=== PATIENT | female | born 1930 | race Caucasian/White ===

== ENCOUNTER 2016-09-11 14:34 | Inpatient (IN) | payer OTHER, MEDICARE ==
[~2016-09-11] VITALS: Ht 170.2 cm; Wt 75.5 kg
[~2016-09-11 14:34] MED LIST: ASPIRIN E.C.81 M1 PO; ASPIRIN81 M1 PO; AVAPRO300 MG PO; Ascorbic Acid,Ester- PO; CADUET 10/801 TABLET PO; CELEBREX200 MG PO; CLARITIN10 MG PO; Claritin,Alavart PO; Dulcolax PO; ENDOCET 5-3251 EACH PO; FOLVITE1 M1 PO; FOSAMAX70 MG PO; GEMFIBROZIL600 MG PO; HYDROCHLOROTH12.5 M3 PO; LIPITOR40 MG PO; LOPID600 MG PO; LOPRESSOR100 M1 PO; LOPRESSOR50 MG PO; Lopid PO; Lopressor PO; METOCLOPRAMIDE H5 MG PO; NEXIUM10 MG PO; NEXIUM40 MG PO; NORVASC10 MG PO; Norvasc PO; ONDANSETRON ODT4 MG PO; OYST-CAL D, OS500 M1 PO; Ocean Nasal 0.65% BOTH NARES; PLAVIX75 MG PO; SENOKOT S,PE1 TABLET PO; SUCRALFATE1 GM/10 ML PO; THERAGRAN1 TABLET PO; TOPROL XL50 MG PO; Tylenol Regular Stre PO; XARELTO15 MG PO; ZETIA10 MG PO; ZOFRAN ODT8 MG PO; ZOLOFT50 MG PO; ZYRTEC10 M2 PO; Zoloft PO
[2016-09-11 15:32] LABS: HEMATOCRIT 25.6 % (36.0-46.0); MCH 26.2 PG (29.0-34.0); MCV 81.8 FL (83-99); MEAN PLAT.VOLUME 10.4 uM^3 (9.5-12.4); PLATELET COUNT 332 K/uL (156-360); RBC DIS.WIDTH-CV 13.4 % (11.8-14.6); RBC DIS.WIDTH-SD 40.1 % (39-53); RED BLOOD COUNT 3.13 M/uL (3.80-5.20); WHITE BLOOD COUNT 10.3 K/uL (4.1-10.2)
[2016-09-11 15:42] LABS: CHLORIDE 103 mEq/L (99-109); POTASSIUM 3.8 mEq/L (3.7-5.4); SODIUM 134 mEq/L (136-147)
[2016-09-11 15:43] LABS: GLUCOSE 146 mg/dL (70-99)
[2016-09-11 15:45] LABS: ANION GAP 8 MEQ/L (2-14)
[2016-09-11 15:47] LABS: GFR ESTIMATE (CALCULATED) 41 mL/min/
[2016-09-11 15:48] LABS: UREA NITROGEN (BUN) 26 mg/dL (9-23)
[2016-09-11] MEDS ORDERED: LIPITOR80 MG PO (18:59)
[2016-09-11] MEDS ORDERED: LOPRESSOR50 MG PO (19:01)
[2016-09-11] MEDS ORDERED: CALCIUM 600 +1 EAC1 PO (19:02)
[2016-09-11] MEDS ORDERED: ANTIVERT25 MG PO (19:03)
[2016-09-11] MEDS ORDERED: RANITIDINE HCL300 MG PO (19:03)
[2016-09-11 23:34] LABS: TROP-I INTERPRETATION NEGATIVE; TROPONIN-I 0.03 ng/mL (0.0-0.30)
[2016-09-12] VITALS (25 sets, daily range): BP systolic 127–171; BP diastolic 62–91
[2016-09-12 00:59] LABS: HEMATOCRIT 23.6 % (36.0-46.0); MCV 81.7 FL (83-99)
[2016-09-12 01:37] LABS: METH RESISTANT S AUREUS PCR NEGATIVE (NEGATIVE)
[2016-09-12 01:45] LABS: PROBE CHECK PASS; SPECIMEN PROCESSING CONTROL PASS
[2016-09-12 05:13] LABS: MCV 81.8 FL (83-99)
[2016-09-12 05:28] LABS: INTER. NORMALIZED RATIO 1.1; PROTHROMBIN TIME 10.7 (9.2-11.2); PTT 24.3 (25-32)
[2016-09-12 05:40] LABS: ALKALINE PHOSPHATASE 44 IU/L (3-129); ANION GAP 10 MEQ/L (2-14); CHLORIDE 108 MEQ/L (99-109); GFR ESTIMATE (CALCULATED) 50 mL/min/; SAMPLE HEMOLYSIS CHECK 0; SAMPLE ICTERIC CHECK 0; SAMPLE LIPEMIA CHECK 0; SODIUM 140 MEQ/L (136-147); TOTAL BILIRUBIN 0.5 MG/DL (0.0-1.0); UREA NITROGEN (BUN) 16 mg/dL (9-23)
[2016-09-12 05:42] LABS: GLUCOSE 109 mg/dL (70-99)
[2016-09-12 06:53] LABS: Estimated Average Glucose 131 mg/dL (70-123); HEMOGLOBIN A1c (GLYCOHEMOGLOB) 6.2 % HGB (Below 5.7)
[2016-09-12 07:01] LABS: TROP-I INTERPRETATION NEGATIVE; TROPONIN-I 0.07 ng/mL (0.0-0.30)
[2016-09-12 07:10] LABS: HDL CHOLESTEROL 46 MG/DL (Desirable>=50); IRON 12 MCG/DL (35-150); LDL CHOLESTEROL 36 mg/dL (Desirable<100); NON-HDL CHOLESTEROL 48 mg/dL (Desirable<160); TOTAL CHOLESTEROL 94 mg/dL (Desirable<200); TRIGLYCERIDES 61 MG/DL (Normal: <150)
[2016-09-12 07:44] LABS: FERRITIN 8 NG/ML (10-291)
[2016-09-12 10:12] LABS: TROP-I INTERPRETATION NEGATIVE; TROPONIN-I 0.05 ng/mL (0.0-0.30)
[2016-09-12 18:55] LABS: HEMATOCRIT 31.3 % (36.0-46.0); MCV 83.5 FL (83-99)
[2016-09-12 19:04] LABS: HEMATOCRIT 33.1 % (36.0-46.0); MCV 82.5 FL (83-99)
[2016-09-13] VITALS (14 sets, daily range): BP systolic 133–162; BP diastolic 62–85
[2016-09-13 06:01] LABS: HEMATOCRIT 31.8 % (36.0-46.0); MCH 27.7 PG (29.0-34.0); MCHC 33.3 G/DL (30.0-36.0); MEAN PLAT.VOLUME 10.7 uM^3 (9.5-12.4); PLATELET COUNT 248 K/uL (156-360); RBC DIS.WIDTH-CV 13.9 % (11.8-14.6); WHITE BLOOD COUNT 13.2 K/uL (4.1-10.2)
[2016-09-13 06:23] LABS: RED BLOOD COUNT 3.83 M/uL (3.80-5.20)
[2016-09-13 06:31] LABS: ANION GAP 12 MEQ/L (2-14); CHLORIDE 107 MEQ/L (99-109); GFR ESTIMATE (CALCULATED) > 59 mL/min/; POTASSIUM 3.7 MEQ/L (3.7-5.4); SAMPLE HEMOLYSIS CHECK 0; SAMPLE ICTERIC CHECK 0; SAMPLE LIPEMIA CHECK 0; SODIUM 138 MEQ/L (136-147); UREA NITROGEN (BUN) 13 mg/dL (9-23)
[2016-09-13 06:34] LABS: GLUCOSE 80 mg/dL (70-99)
[2016-09-13 18:49] LABS: HEMATOCRIT 32.8 % (36.0-46.0)
[2016-09-14] VITALS (9 sets, daily range): BP systolic 138–166; BP diastolic 66–89
[2016-09-14 05:50] LABS: HEMATOCRIT 30.4 % (36.0-46.0); MCH 27.8 PG (29.0-34.0); MCHC 33.9 G/DL (30.0-36.0); MCV 81.9 FL (83-99); MEAN PLAT.VOLUME 10.8 uM^3 (9.5-12.4); PLATELET COUNT 267 K/uL (156-360); RBC DIS.WIDTH-CV 14.1 % (11.8-14.6); RBC DIS.WIDTH-SD 41.7 % (39-53); RED BLOOD COUNT 3.71 M/uL (3.80-5.20); WHITE BLOOD COUNT 14.6 K/uL (4.1-10.2)
[2016-09-14 06:33] LABS: ANION GAP 9 MEQ/L (2-14); CHLORIDE 108 MEQ/L (99-109); GFR ESTIMATE (CALCULATED) > 59 mL/min/; POTASSIUM 3.7 MEQ/L (3.7-5.4); SAMPLE HEMOLYSIS CHECK 0; SAMPLE ICTERIC CHECK 0; SAMPLE LIPEMIA CHECK 0; SODIUM 139 MEQ/L (136-147); UREA NITROGEN (BUN) 17 mg/dL (9-23)
[2016-09-14 06:36] LABS: GLUCOSE 209 mg/dL (70-99)
[2016-09-15 00:26] VITALS: BP 171/75
[2016-09-15 04:23] VITALS: BP 178/82
[2016-09-15 05:52] LABS: EOSINOPHIL (%) 0.1 % (0-5); HEMATOCRIT 29.1 % (36.0-46.0); IMMATURE GRANULOCYTE (%) 0.4 % (0.0-0.7); IMMATURE GRANULOCYTE COUNT 0.1 K/uL; INSTRUMENT ABS NEUTROPHIL CT 11.4 K/uL; LYMPHOCYTE COUNT 1.6 K/uL (1.0-2.8); MCH 27.7 PG (29.0-34.0); MCHC 33.7 G/DL (30.0-36.0); MCV 82.2 FL (83-99); MEAN PLAT.VOLUME 10.6 uM^3 (9.5-12.4); MONOCYTE (%) 7.8 % (3-12); MONOCYTE COUNT 1.1 K/uL (0-0.8); NEUTROPHIL (%) 80.6 % (45-76); NEUTROPHIL COUNT 11.4 K/uL (1.8-6.4); PLATELET COUNT 264 K/uL (156-360); RBC DIS.WIDTH-CV 14.2 % (11.8-14.6); RBC DIS.WIDTH-SD 42.1 % (39-53); RED BLOOD COUNT 3.54 M/uL (3.80-5.20); WHITE BLOOD COUNT 14.1 K/uL (4.1-10.2)
[2016-09-15 06:31] LABS: ALKALINE PHOSPHATASE 46 IU/L (3-129); ANION GAP 8 MEQ/L (2-14); CHLORIDE 111 MEQ/L (99-109); GFR ESTIMATE (CALCULATED) > 59 mL/min/; GLUCOSE 178 mg/dL (70-99); POTASSIUM 3.9 MEQ/L (3.7-5.4); SAMPLE HEMOLYSIS CHECK 0; SAMPLE ICTERIC CHECK 0; SAMPLE LIPEMIA CHECK 0; SODIUM 141 MEQ/L (136-147); UREA NITROGEN (BUN) 15 mg/dL (9-23)
[2016-09-15 06:46] LABS: TOTAL BILIRUBIN 0.7 MG/DL (0.0-1.0)
[2016-09-15 09:00] VITALS: BP 173/94
[2016-09-15 12:00] VITALS: BP 172/83
[2016-09-15 16:15] LABS: BASE EXCESS -0.7 mEq/L (-3 to +3); BICARBONATE 22.9 mEq/L (22-26); CARBOXY HGB 1.6 % (0-5); COMMENTS - BLOOD GASES A+C+; DEVICE NC; METHEMOGLOBIN 1.7 % (0-1.5); O2 FLOW 2 L/MIN; PCO2 33 mm Hg (35-45); PO2 94 mm Hg (80-100); SITE RR; pH 7.45 (7.35-7.45)
[2016-09-15 16:16] LABS: TOTAL RESP RATE 24 resp/min
[2016-09-15 16:41] LABS: POINT-OF-CARE METER ID UU13113698; POINT-OF-CARE USER ID NUTSLF44
[2016-09-15 20:35] VITALS: BP 148/72
[2016-09-15 23:36] VITALS: BP 171/95
[2016-09-16 05:15] VITALS: BP 145/81
[2016-09-16 05:29] LABS: EOSINOPHIL (%) 0.1 % (0-5); HEMATOCRIT 27.7 % (36.0-46.0); IMMATURE GRANULOCYTE (%) 0.6 % (0.0-0.7); IMMATURE GRANULOCYTE COUNT 0.1 K/uL; INSTRUMENT ABS NEUTROPHIL CT 9.5 K/uL; LYMPHOCYTE COUNT 0.9 K/uL (1.0-2.8); MCH 26.6 PG (29.0-34.0); MCHC 32.1 G/DL (30.0-36.0); MCV 82.9 FL (83-99); MEAN PLAT.VOLUME 10.5 uM^3 (9.5-12.4); MONOCYTE (%) 7.4 % (3-12); MONOCYTE COUNT 0.8 K/uL (0-0.8); NEUTROPHIL (%) 83.9 % (45-76); NEUTROPHIL COUNT 9.5 K/uL (1.8-6.4); PLATELET COUNT 243 K/uL (156-360); RBC DIS.WIDTH-CV 14.3 % (11.8-14.6); RBC DIS.WIDTH-SD 43.5 % (39-53); RED BLOOD COUNT 3.34 M/uL (3.80-5.20); WHITE BLOOD COUNT 11.3 K/uL (4.1-10.2)
[2016-09-16 05:57] LABS: ANION GAP 8 MEQ/L (2-14); CHLORIDE 110 MEQ/L (99-109); GFR ESTIMATE (CALCULATED) > 59 mL/min/; GLUCOSE 126 mg/dL (70-99); POTASSIUM 3.8 MEQ/L (3.7-5.4); SAMPLE HEMOLYSIS CHECK 0; SAMPLE ICTERIC CHECK 0; SAMPLE LIPEMIA CHECK 0; SODIUM 140 MEQ/L (136-147); UREA NITROGEN (BUN) 18 mg/dL (9-23)
[2016-09-16 08:20] VITALS: BP 147/75
[2016-09-16 11:37] VITALS: BP 122/58
[2016-09-16 16:00] VITALS: BP 173/90
[2016-09-16 20:20] VITALS: BP 171/71
[2016-09-16 20:32] VITALS: BP 171/71
[2016-09-17 00:24] VITALS: BP 172/72
[2016-09-17 03:55] VITALS: BP 150/79
[2016-09-17 07:26] VITALS: BP 142/67
[2016-09-17 11:54] VITALS: BP 137/69
[2016-09-18 06:41] VITALS: BP 00/00
== END 2016-09-18 11:06 | DRG 377 ==
LOC: EME 14:34 → 4EAST 20:42 → 4WEST 20:42 → EDOF 20:42 → 5EAST 20:42 → EDOF 21:26 → 4WEST 23:40 → 4EAST 23:51 → 5EAST 09-17 19:57
PROVIDERS: Hospitalist; Internal Medicine; Internal Medicine Gastroenterology
PROC: 30233N1 Transfusion of Nonautologous Red Blood Cells into Peripheral Vein, Percutaneous Approach (ICD-10-PCS; principal; 2016-09-12)
DX: K92.2 Gastrointestinal hemorrhage, unspecified (principal); I63.40 Cerebral infarction due to embolism of unspecified cerebral artery; E87.1 Hypo-osmolality and hyponatremia; D53.9 Nutritional anemia, unspecified; I48.0 Paroxysmal atrial fibrillation; I69.398 Other sequelae of cerebral infarction; I69.354 Hemiplegia and hemiparesis following cerebral infarction affecting left non-dominant side; Z79.01 Long term (current) use of anticoagulants; I65.22 Occlusion and stenosis of left carotid artery; E78.00 Pure hypercholesterolemia, unspecified; Z66 Do not resuscitate; R13.10 Dysphagia, unspecified; F32.9 Major depressive disorder, single episode, unspecified; K21.9 Gastro-esophageal reflux disease without esophagitis; N18.3 Chronic kidney disease, stage 3 (moderate); I12.9 Hypertensive chronic kidney disease with stage 1 through stage 4 chronic kidney disease, or unspecified chronic kidney disease; I67.2 Cerebral atherosclerosis; Z96.641 Presence of right artificial hip joint; Z87.891 Personal history of nicotine dependence; K86.2 Cyst of pancreas; Z95.1 Presence of aortocoronary bypass graft; I25.10 Atherosclerotic heart disease of native coronary artery without angina pectoris; Z90.11 Acquired absence of right breast and nipple; E78.5 Hyperlipidemia, unspecified; Z85.3 Personal history of malignant neoplasm of breast; D50.9 Iron deficiency anemia, unspecified; R47.01 Aphasia; I44.7 Left bundle-branch block, unspecified; G81.91 Hemiplegia, unspecified affecting right dominant side; R29.722 NIHSS score 22; G93.89 Other specified disorders of brain; Z51.5 Encounter for palliative care; E11.22 Type 2 diabetes mellitus with diabetic chronic kidney disease; D62 Acute posthemorrhagic anemia; R40.20 Unspecified coma; Z96.651 Presence of right artificial knee joint
CPT/HCPCS: 36600; 70450; 70498; 70551; 71010; 71020; 80048; 80053; 80061; 80069; 81003; 82728; 82803; 82948; 83036; 83540; 84466; 84484; 85014; 85018; 85025; 85027; 85610; 85730; 86900; 86901; 86920; 87086; 87641; 92523 GN; 92610 GN; 93005; 94799; 97530 GO; 97530 GP; 99281; 99284; 99285; C9113; J0360; J2060; J2270; J2405; J7030; J7042; J7050; P9016

== ENCOUNTER 2016-09-18 11:05 | Inpatient (IN) | payer OTHER ==
[~2016-09-18 11:05] MED LIST changes: +ANTIVERT25 MG PO; +CALCIUM 600 +1 EAC1 PO; +LIPITOR80 MG PO; +RANITIDINE HCL300 MG PO
== END 2016-09-18 16:30 | DRG 65 ==
LOC: 5EAST 11:05
DX: I63.40 Cerebral infarction due to embolism of unspecified cerebral artery (principal); K92.2 Gastrointestinal hemorrhage, unspecified; I48.0 Paroxysmal atrial fibrillation; Z51.5 Encounter for palliative care; Z66 Do not resuscitate; Z96.641 Presence of right artificial hip joint; Z87.891 Personal history of nicotine dependence; I69.351 Hemiplegia and hemiparesis following cerebral infarction affecting right dominant side; F32.9 Major depressive disorder, single episode, unspecified; N18.3 Chronic kidney disease, stage 3 (moderate); I12.9 Hypertensive chronic kidney disease with stage 1 through stage 4 chronic kidney disease, or unspecified chronic kidney disease; E87.1 Hypo-osmolality and hyponatremia; I25.10 Atherosclerotic heart disease of native coronary artery without angina pectoris; Z95.1 Presence of aortocoronary bypass graft; K21.9 Gastro-esophageal reflux disease without esophagitis; D50.9 Iron deficiency anemia, unspecified; R47.01 Aphasia; Z85.3 Personal history of malignant neoplasm of breast; Z90.10 Acquired absence of unspecified breast and nipple
CPT/HCPCS: 94799; J2270